=== PATIENT | female | born 1985 | race Caucasian/White ===

== ENCOUNTER → 2023-08-29 | Outpatient (CLI) | payer OTHER | LOC: M PLAIMG 13:56 | PROVIDERS: ATTEND Family Medicine | DX: M25.572 Pain in left ankle and joints of left foot (principal) ==

== ENCOUNTER → 2024-07-20 | Outpatient (CLI) | payer OTHER | LOC: M RAD 14:01 | PROVIDERS: ATTEND Family Medicine | DX: D17.1 Benign lipomatous neoplasm of skin and subcutaneous tissue of trunk (principal) ==

== ENCOUNTER → 2025-01-05 | Outpatient (REF) | payer OTHER | LOC: M LAB REF 17:00 | PROVIDERS: ATTEND Family Medicine | DX: N76.0 Acute vaginitis (principal) ==